=== PATIENT | female | born 1955 | race Native Hawaiian/Other Pacific Islander ===

== ENCOUNTER 2018-06-24 08:50 | Day surgery (SDC) | payer OTHER ==
[2018-06-24 10:05] VITALS: BMI 22.1
[2018-06-24 10:32] VITALS: O2SAT 100
--- NOTE | 2018-06-24 11:13 | CP.SDSHP ---
Same Day Surgery H & P - History Proposed Procedure: colonscopy Pre-Op Diagnosis: SEE NOTES - Previous Medical/Surgical History Cardiac: Hypertension Endocrine/Metabolic: Other Neuro: Other Misc: Other Pain: 4.Moderate Pain - Allergies Allergies: Allergies No Known Allergies Allergy (Verified 06/24/18 10:05) - Physical Exam General Appearance: N Vital Signs: Vital Signs 06/24/18 10:14 Temperature 97.5 F L Pulse Rate 90 Respiratory 18 Rate Blood Pressure 139/86 O2 Sat by Pulse 100 Oximetry Mental Status: Alert & Oriented x3 Neuro: WNL Heart: Other Lungs: WNL GI: WNL - {Optional Preform as Required} Breast: WNL Abdomen: Other Rectal: Other Integument: WNL : WNL Ortho: WNL ENT: WNL - Impression Pt. Evaluated Today:Candidate for Anesthesia & Procedure: Yes - Date & Time Time: 11:13 Short Stay Discharge - Short Stay Discharge Admitting Diagnosis/Reason for Visit: H/O COLON POLYPS Disposition: HOME/ ROUTINE
[2018-06-24] MEDS ORDERED: Lactated Ringer's 1,000 ML IV ONE (11:25)
[2018-06-24] MEDS ORDERED: Propofol 10 mg/ml Inj (20 ML) ONE (11:28)
[2018-06-24] MEDS ORDERED: Lidocaine Hydrochloride 5 ML INJ ONE (11:28)
[2018-06-24] MEDS ORDERED: Belladonna-Phenobarbital PO ONE (12:10)
[2018-06-24 12:15] VITALS: TEMP 98.5
[2018-06-24 14:00] VITALS: BP 123/76; PULSE 78; RESP 14
== END 2018-06-24 13:55 | disposition home or self-care (01) ==
LOC: C.ENDO 08:50
PROVIDERS: ATTEND Specialist
DX: Z12.11 Encounter for screening for malignant neoplasm of colon (principal); Z86.010 Personal history of colon polyps; D12.3 Benign neoplasm of transverse colon; K64.8 Other hemorrhoids
CPT/HCPCS: 45380; 88305; J2704; J7120